=== PATIENT | male | born 1980 | race Asian ===

== ENCOUNTER → 2023-07-03 13:57 | Outpatient (REF) | payer BC, SELFPAY | LOC: WOUND 13:57 | PROVIDERS: ATTENDING PHYSICIAN Surgery; REFERRING PHYSICIAN Physician Assistant Medical | DX: I83.203 Varicose veins of unspecified lower extremity with both ulcer of ankle and inflammation (principal); L97.321 Non-pressure chronic ulcer of left ankle limited to breakdown of skin; I83.013 Varicose veins of right lower extremity with ulcer of ankle; L97.311 Non-pressure chronic ulcer of right ankle limited to breakdown of skin | CPT/HCPCS: 99212 ==

== ENCOUNTER 2024-09-22 10:35 | Emergency (ER) | payer BC, SELFPAY ==
--- NOTE | 2024-09-22 10:46 | ED.GENMED ---
ED Provider Triage
<Iveth Reid PA-C - Last Filed: 09/22/24 10:51>
-
Patient seen by provider in Triage?: Seen in Triage
Attestation: A medical screening examination has been initiated by a qualified medical provider. Based on the assessment performed at this time, it has been determined that an emergent medical condition may exist and the patient has been informed
that further medical evaluation and possible additional diagnostic testing may be needed.
HPI: 44yoM here with R ankle wound x 1 week. C/o chills. Hx of non-healing wounds requiring wound vacs in the past. No hx of diabetes.
GENERAL: Alert , in no apparent distress
EYE: No visual abnormalities.
NECK: Trachea midline
ENT: No visible abnormalities.
LUNGS: No acute respiratory distress
NEUROLOGICAL: Alert and oriented
SKIN: Skin intact. No visible changes.
MUSCULOSKELETAL: Moving extremities normally
PSYCH: Normal and appropriate interaction.
This is a medical evaluation conducted in person to initiate diagnostic evaluation and provide initial therapeutics. Please see further documentation by the treating clinician.
CBC, CMP, and R ankle x-rays ordered.
History of Present Illness
<Iveth Reid PA-C - Last Filed: 09/22/24 10:51>
General
Chief Complaint: Skin Problem
Time Seen by Provider: 09/22/24 11:38
<Michael Montenegro PA-C - Last Filed: 09/22/24 15:42>
History of Present Illness
History of Present Illness:
44-year-old male with history of venous insufficiency of the bilateral lower extremities presents to the emergency department for evaluation of a wound to the right posterior medial ankle. He states that the scab on the wound sloughed off over the
past 24 hours and he reports chills with no fever today. History of complicated wound infections. Having discomfort when ambulating
Past History
<Iveth Reid PA-C - Last Filed: 09/22/24 10:51>
Past History
ED Past Medical History: None
ED Past Surgical History: None
Social History
Tobacco: Smoker (Occasional)
Alcohol: None
Drug: None
Personal:
Living: with family
Employment: Employed
Review of Systems
<Michael Montenegro PA-C - Last Filed: 09/22/24 15:42>
Review of Systems
Allergies reviewed?: Yes
All Other Systems: ROS reviewed and negative except as documented in HPI and ROS
Phy Exam
<Michael Montenegro PA-C - Last Filed: 09/22/24 15:42>
Physical Exam
Physical Exam:
GEN: Well appearing, NAD, WDWN
HEENT: Oral mucosa moist, no scleral icterus
Cardiac: Regular rate
Lung: No respiratory distress, no tachypnea
MSK: No gross deformity or injuries
Skin: Good color, no pallor or jaundice. 1.5 cm circular ulcerated wound to the right posterior medial ankle just anterior to the Achilles tendon. There is no erythema or warmth, the wound is slightly tender to palpation. No crepitus.
Neuro: AO x3, moves all extremities freely
Psych: Calm, cooperative
Course
<Iveth Reid PA-C - Last Filed: 09/22/24 10:51>
Orders/Labs/Results
Orders:
Orders
09/22/24 10:50
Ankle, Right 3 view CR [CR Ankle - Right Min 3 Views *] Urgent
Comment:
Reason For Exam: Wound to medial aspect of ankle
09/22/24 10:55
C-Reactive Protein Urgent
Comment: ADD ON
Complete Blood Count/With Diff Urgent
Comprehensive Metabolic Panel Urgent
09/22/24 12:07
Add On- LAB Urgent
Tests Added?: CRP
Abnormal Lab Results
09/22/24
10:55
RBC 4.60 L 10^6/uL
(4.70-6.10)
Hgb 12.8 L g/dL
(13.0-18.0)
Hct 38.9 L %
(39.0-52.0)
MCHC 32.9 L g/dL
(33.0-37.0)
Creatinine 0.6 L mg/dL
(0.7-1.3)
Glucose 123 H mg/dl
(70-99)
C-Reactive Protein 16.50 H mg/L
(0.0-10.00)
09/22/24 10:55
09/22/24 10:55
Vital Signs
Initial and Last Documented VS:
Initial Vital Signs
Temp Pulse Resp BP Pulse Ox
98.4 F 84 16 134/93 96
09/22/24 10:48 09/22/24 10:48 09/22/24 10:48 09/22/24 10:48 09/22/24 10:48
Last Documented Vital Signs
Temp Pulse Resp BP Pulse Ox
98.4 F 84 19 130/84 99
09/22/24 10:48 09/22/24 14:59 09/22/24 14:59 09/22/24 14:59 09/22/24 14:59
<Michael Montenegro PA-C - Last Filed: 09/22/24 15:42>
Orders/Labs/Results
Orders:
Orders
09/22/24 10:50
Ankle, Right 3 view CR [CR Ankle - Right Min 3 Views *] Urgent
Comment:
Reason For Exam: Wound to medial aspect of ankle
09/22/24 10:55
C-Reactive Protein Urgent
Comment: ADD ON
Complete Blood Count/With Diff Urgent
Comprehensive Metabolic Panel Urgent
09/22/24 12:07
Add On- LAB Urgent
Tests Added?: CRP
Abnormal Lab Results
09/22/24
10:55
RBC 4.60 L 10^6/uL
(4.70-6.10)
Hgb 12.8 L g/dL
(13.0-18.0)
Hct 38.9 L %
(39.0-52.0)
MCHC 32.9 L g/dL
(33.0-37.0)
Creatinine 0.6 L mg/dL
(0.7-1.3)
Glucose 123 H mg/dl
(70-99)
C-Reactive Protein 16.50 H mg/L
(0.0-10.00)
09/22/24 10:55
09/22/24 10:55
Vital Signs
Initial and Last Documented VS:
Initial Vital Signs
Temp Pulse Resp BP Pulse Ox
98.4 F 84 16 134/93 96
09/22/24 10:48 09/22/24 10:48 09/22/24 10:48 09/22/24 10:48 09/22/24 10:48
Last Documented Vital Signs
Temp Pulse Resp BP Pulse Ox
98.4 F 84 19 130/84 99
09/22/24 10:48 09/22/24 14:59 09/22/24 14:59 09/22/24 14:59 09/22/24 14:59
<Ronaldo Cheung, DO - Last Filed: 09/22/24 16:08>
Orders/Labs/Results
Orders:
Orders
09/22/24 10:50
Ankle, Right 3 view CR [CR Ankle - Right Min 3 Views *] Urgent
Comment:
Reason For Exam: Wound to medial aspect of ankle
09/22/24 10:55
C-Reactive Protein Urgent
Comment: ADD ON
Complete Blood Count/With Diff Urgent
Comprehensive Metabolic Panel Urgent
09/22/24 12:07
Add On- LAB Urgent
Tests Added?: CRP
Abnormal Lab Results
09/22/24
10:55
RBC 4.60 L 10^6/uL
(4.70-6.10)
Hgb 12.8 L g/dL
(13.0-18.0)
Hct 38.9 L %
(39.0-52.0)
MCHC 32.9 L g/dL
(33.0-37.0)
Creatinine 0.6 L mg/dL
(0.7-1.3)
Glucose 123 H mg/dl
(70-99)
C-Reactive Protein 16.50 H mg/L
(0.0-10.00)
09/22/24 10:55
09/22/24 10:55
Vital Signs
Initial and Last Documented VS:
Initial Vital Signs
Temp Pulse Resp BP Pulse Ox
98.4 F 84 16 134/93 96
09/22/24 10:48 09/22/24 10:48 09/22/24 10:48 09/22/24 10:48 09/22/24 10:48
Last Documented Vital Signs
Temp Pulse Resp BP Pulse Ox
98.4 F 84 19 130/84 99
09/22/24 10:48 09/22/24 14:59 09/22/24 14:59 09/22/24 14:59 09/22/24 14:59
<Michael Montenegro PA-C - Last Filed: 09/22/24 15:42>
MDM/Problems Addressed
MDM/Problems Addressed:
Do not suspect septic arthritis at this point given that he has minimal to no pain with passive range of motion, although there is a small joint effusion in the right ankle the patient feels as though his ankle is not acutely swollen. Will cover
with prophylactic antibiotics but recommend outpatient wound care follow-up, wound dressed with Xeroform and gauze
<Michael Montenegro PA-C - Last Filed: 09/22/24 15:42>
*Critical Care Note
Total Time (30-74mins, 75-104mins- exclusive of procedures): Not Applicable
ED Attending Note
<Iveth Reid PA-C - Last Filed: 09/22/24 10:51>
-
Portions of this chart may have been created with voice recognition software.� Occasional wrong word or��sound alike� substitutions may have occurred due to the inherent limitations of voice recognition software.
<Ronaldo Cheung DO - Last Filed: 09/22/24 16:08>
ED Attending Note
Patient seen and examined by attending physician: Yes
ED Attending Note:
I have reviewed and agree with history and treatment plan by Sarbjit Montenegro. My exam revealed chronic wound on right ankle. No tenderness at ankle joint. Doubt septic arthritis. Follow-up with wound care.
Discharge Plan
Departure
Patient Disposition: Home (Routine Discharge)
Date of Disposition: 09/22/24
Time of Disposition: 14:44
Patient with high blood pressure during this ER visit?: No
Discharge Problem:
Chronic ulcer of right ankle
Instructions: Wound Care (DC)
Prescriptions:
New
cephalexin 500 mg capsule
500 mg PO Q8H 5 Days Qty: 15 0RF
No Action
cephalexin 500 mg capsule
500 mg PO TID 7 Days Qty: 21 0RF
Referrals:
Hamida Radford PA [Family Provider] -
Wei Dobbs MD [Active] -
Interventions
Interventions:
*Risk Screen - Suicide Last Done: 09/22/24 10:48
*General Assessment Last Done: 09/22/24 10:48
*Neglect/Abuse Screening Last Done: 09/22/24 10:48
ED- Fall Risk Assessment Last Done: 09/22/24 13:08
*Nursing Disposition Last Done: 09/22/24 15:00
Discharge Date and Time
Discharge Date/Time: 09/22/24 15:00
Print Language: YORUBA
[2024-09-22 10:48] VITALS: BP 134/93
[2024-09-22 11:17] LABS: % Basophils 0.7 % (0-2); % Eosinophils 2.5 % (0-6); % Immature Granulocytes 0.4 % (0-0.5); % Lymphocytes 35.8 % (20.5-51.1); % Monocytes 8.2 % (1.7-9.3); % Neutrophils 52.4 % (42.2-75.2); Absolute Eosinophils 0.1 10^3/uL (0-0.7); Absolute Monocytes 0.5 10^3/uL (0.1-0.6); Absolute Neutrophils 2.9 10^3/uL (1.4-6.5); Hematocrit 38.9 % (39.0-52.0); Hemoglobin 12.8 g/dL (13.0-18.0); Mean Corp Hgb Conc. 32.9 g/dL (33.0-37.0); Mean Corpuscular Hgb 27.8 pg (27.0-31.0); Mean Corpuscular Volume 84.6 fL (80.0-94.0); Mean Platelet Volume 9.3 fL (7.4-10.4); Nucleated Red Blood Cells % 0 % (-); Platelet Count 219 10^3/uL (130-400); Red Cell Dist. Width 13.8 % (11.5-14.5); White Blood Cell Count 5.5 10^3/uL (4.8-10.8)
[2024-09-22 11:21] LABS: ALT (SGPT) 33 U/L (0-50); AST (SGOT) 34 U/L (17-59); Albumin 4.7 g/dl (3.5-5.0); Alkaline Phosphatase 74 U/L (38-126); Blood Urea Nitrogen 12 mg/dl (9-20); Calcium 9.5 mg/dl (8.4-10.2); Carbon Dioxide 30 mmol/L (22-30); Chloride 100 mmol/L (98-107); Glucose 123 mg/dl (70-99); Potassium 4.3 mmol/L (3.5-5.1); Sodium 140 mmol/L (135-145); Total Bilirubin 0.4 mg/dl (0.2-1.3); Total Protein 7.8 g/dl (6.3-8.2); eGFR > 60.00
[2024-09-22 14:59] VITALS: BP 130/84
== END 2024-09-22 15:00 | disposition home or self-care (01) ==
LOC: EMR 10:35
PROVIDERS: Physician Assistant; EMERGENCY PHYSICIAN Emergency Medicine; FAMILY PHYSICIAN Physician Assistant Medical
DX: L97.319 Non-pressure chronic ulcer of right ankle with unspecified severity (principal); X58.XXXA Exposure to other specified factors, initial encounter; F17.200 Nicotine dependence, unspecified, uncomplicated; I87.2 Venous insufficiency (chronic) (peripheral)
CPT/HCPCS: 99283; 73610; 80053; 85025; 86140

== ENCOUNTER → 2024-09-25 08:05 | Outpatient (REF) | payer BC, SELFPAY | LOC: WOUND 08:05 | PROVIDERS: ATTENDING PHYSICIAN Surgery; FAMILY PHYSICIAN Physician Assistant Medical | DX: I83.013 Varicose veins of right lower extremity with ulcer of ankle (principal); L97.312 Non-pressure chronic ulcer of right ankle with fat layer exposed | CPT/HCPCS: 11042; 97597; 99213 ==

== ENCOUNTER → 2024-09-29 14:43 | Outpatient (REF) | payer BC, SELFPAY | LOC: WOUND 14:43 | PROVIDERS: ATTENDING PHYSICIAN Surgery; FAMILY PHYSICIAN Physician Assistant Medical | DX: I83.013 Varicose veins of right lower extremity with ulcer of ankle (principal); L97.312 Non-pressure chronic ulcer of right ankle with fat layer exposed | CPT/HCPCS: 11042 ==

== ENCOUNTER → 2024-10-05 13:08 | Outpatient (REF) | payer BC, SELFPAY | LOC: WOUND 13:08 | PROVIDERS: ATTENDING PHYSICIAN Surgery; FAMILY PHYSICIAN Physician Assistant Medical | DX: I83.013 Varicose veins of right lower extremity with ulcer of ankle (principal); L97.312 Non-pressure chronic ulcer of right ankle with fat layer exposed | CPT/HCPCS: 99212 ==

== ENCOUNTER → 2024-10-12 14:26 | Outpatient (REF) | payer BC, SELFPAY | LOC: WOUND 14:26 | PROVIDERS: ATTENDING PHYSICIAN Surgery | DX: I83.013 Varicose veins of right lower extremity with ulcer of ankle (principal); L97.312 Non-pressure chronic ulcer of right ankle with fat layer exposed | CPT/HCPCS: 11042 ==

== ENCOUNTER → 2024-10-19 09:24 | Outpatient (REF) | payer BC, SELFPAY | LOC: WOUND 09:24 | PROVIDERS: ATTENDING PHYSICIAN Surgery; FAMILY PHYSICIAN Physician Assistant Medical | DX: I83.013 Varicose veins of right lower extremity with ulcer of ankle (principal); L97.312 Non-pressure chronic ulcer of right ankle with fat layer exposed | CPT/HCPCS: 11042 ==

== ENCOUNTER → 2024-11-02 09:46 | Outpatient (REF) | payer BC, SELFPAY | LOC: WOUND 09:46 | PROVIDERS: ATTENDING PHYSICIAN Surgery; FAMILY PHYSICIAN Physician Assistant Medical | DX: I83.013 Varicose veins of right lower extremity with ulcer of ankle (principal); L97.312 Non-pressure chronic ulcer of right ankle with fat layer exposed | CPT/HCPCS: 11042 ==

== ENCOUNTER → 2024-11-09 13:48 | Outpatient (REF) | payer BC, SELFPAY | LOC: WOUND 13:48 | PROVIDERS: ATTENDING PHYSICIAN Surgery; FAMILY PHYSICIAN Physician Assistant Medical | DX: I83.013 Varicose veins of right lower extremity with ulcer of ankle (principal); L97.312 Non-pressure chronic ulcer of right ankle with fat layer exposed | CPT/HCPCS: 11042 ==

== ENCOUNTER → 2024-11-12 18:37 | Outpatient (REF) | payer BC, SELFPAY | LOC: RAD 18:37 | PROVIDERS: ATTENDING PHYSICIAN Physician Assistant Medical | DX: L97.312 Non-pressure chronic ulcer of right ankle with fat layer exposed (principal) | CPT/HCPCS: 73630 ==

== ENCOUNTER → 2024-11-16 13:17 | Outpatient (REF) | payer BC, SELFPAY | LOC: WOUND 13:17 | PROVIDERS: ATTENDING PHYSICIAN Surgery; FAMILY PHYSICIAN Physician Assistant Medical | DX: I83.013 Varicose veins of right lower extremity with ulcer of ankle (principal); L97.312 Non-pressure chronic ulcer of right ankle with fat layer exposed | CPT/HCPCS: 11042 ==

== ENCOUNTER → 2024-11-30 10:17 | Outpatient (REF) | payer BC, SELFPAY | LOC: WOUND 10:17 | PROVIDERS: ATTENDING PHYSICIAN Surgery; FAMILY PHYSICIAN Physician Assistant Medical | DX: I83.013 Varicose veins of right lower extremity with ulcer of ankle (principal); L97.312 Non-pressure chronic ulcer of right ankle with fat layer exposed | CPT/HCPCS: 11042 ==

== ENCOUNTER → 2024-12-21 11:14 | Outpatient (REF) | payer BC, SELFPAY | LOC: WOUND 11:14 | PROVIDERS: ATTENDING PHYSICIAN Surgery; FAMILY PHYSICIAN Physician Assistant Medical | DX: I83.013 Varicose veins of right lower extremity with ulcer of ankle (principal); L97.312 Non-pressure chronic ulcer of right ankle with fat layer exposed | CPT/HCPCS: 99213 ==

== ENCOUNTER 2025-01-01 17:51 | Emergency (ER) | payer BC, SELFPAY ==
[2025-01-01 18:07] VITALS: BP 128/84
--- NOTE | 2025-01-01 18:20 | ED.GENMED ---
ED Provider Triage
<Iveth Reid PA-C - Last Filed: 01/01/25 18:21>
-
Patient seen by provider in Triage?: Seen in Triage
Attestation: A medical screening examination has been initiated by a qualified medical provider. Based on the assessment performed at this time, it has been determined that an emergent medical condition may exist and the patient has been informed
that further medical evaluation and possible additional diagnostic testing may be needed.
HPI: 44yoM here with a R ankle wound. Wound since September, sees wound care every Saturday. Has been applying Aquafor and Cerave. Now with increasing pain and difficulty with weight bearing/ROM x 3 days. No f/c. Hx of prediabetes.
GENERAL: Alert , in no apparent distress
EYE: No visual abnormalities.
NECK: Trachea midline
ENT: No visible abnormalities.
LUNGS: No acute respiratory distress
NEUROLOGICAL: Alert and oriented
SKIN: Skin intact. No visible changes.
MUSCULOSKELETAL: Moving extremities normally
PSYCH: Normal and appropriate interaction.
This is a medical evaluation conducted in person to initiate diagnostic evaluation and provide initial therapeutics. Please see further documentation by the treating clinician.
CBC, CMP, ESR/CRP, and R ankle/calcaneus x-rays ordered.
History of Present Illness
<Iveth Reid PA-C - Last Filed: 01/01/25 18:21>
General
Chief Complaint: Skin Problem
Time Seen by Provider: 01/02/25 04:06
<Juany Chester DO - Last Filed: 01/02/25 04:41>
General
Source: patient and previous hospital records (ED visit October 2024 for somewhat similar complaint)
Exam Limitations: none
Nursing documentation reviewed up to this point in time: agreed with
History of Present Illness
History of Present Illness:
This is a 44-year-old gentleman who has history of chronic venous stasis lower extremities with history of chronic wounds to his ankles. Currently being treated by our wound care center for right medial ankle chronic wound that began
September/October.
Along with chronic right ankle wound he notes chronic skin thickening, bilateral medial ankles and has been trialing various different emollient moisturizers. He has been evaluated by truck driver rubbish collector in the past
With trial of a topical steroid cream that caused burning which he promptly discontinued.
He has a referral for a new truck driver rubbish collector provided by his PCP recently.
He continues to work full-time, at [employer], admits to extensive walking and standing.
He complains of increased pain and swelling right medial ankle more so over the past week. He has not had a fever nor chills.
Mild drainage from the wound but this is unchanged.
He has been compliant with ointment, silver alginate dressing and has been applying Tegaderm instead of recommended clean dressing as he admits that he has difficulty putting his compression stockings on over a Tami dressing.
Past History
<Iveth Reid PA-C - Last Filed: 01/01/25 18:21>
Past History
ED Past Medical History: None
ED Past Surgical History: None
Social History
Tobacco: Smoker (Occasional)
Alcohol: None
Drug: None
Personal:
Living: with family
Employment: Employed
<Juany Chester DO - Last Filed: 01/02/25 04:41>
Past History
ED Past Medical History: Other (Venous stasis lower extremities; chronic venous stasis ulcers)
ED Past Surgical History: Other (Vein stripping bilateral lower extremities)
Family History
Family History: Other (Noncontributory)
Phy Exam
<Juany Chester DO - Last Filed: 01/02/25 04:41>
Physical Exam
Physical Exam:
GENERAL: Alert , in no apparent distress
EYE: anicteric
NECK: Supple, nontender
ENT: oral mucosa is moist.
CARDIAC: Regular rate and rhythm. no murmur.
LUNGS: Clear breath sounds bilaterally, no acute respiratory distress, no wheezes/rales/rhonchi
ABDOMEN: Soft, nondistended, without focal tenderness
NEUROLOGICAL: Alert and oriented x3, no focal neuro deficits.
SKIN: Warm and dry, normal color, there is chronic appearing skin thickening/with scale left medial ankle. Right medial ankle has a 1 cm ulcerated wound with scant pearly drainage. There is mildly brawny thickened skin globally of the medial ankle
without palpable heat nor significant palpable tenderness. No lymphangitis. There is no peripheral edema.
MUSCULOSKELETAL: No C/C/E. peripheral pulses are full and equal b/l. Minimal tenderness right medial ankle.
PSYCH: Normal and appropriate interaction.
Course
<Iveth Reid PA-C - Last Filed: 01/01/25 18:21>
Orders/Labs/Results
Orders:
Orders
01/01/25 18:19
CR Ankle - Right Min 3 Views * Urgent
Comment:
Reason For Exam: wound
Calcaneus, Right 2 View [CR Heel/os Calcis - Right 2 Vw] Urgent
Comment:
Reason For Exam: wound
01/01/25 18:25
CRP [C-Reactive Protein] Urgent
Complete Blood Count/With Diff Urgent
Comprehensive Metabolic Panel Urgent
ESR [Erythrocyte Sed Rate] Urgent
01/02/25 04:24
Cephalexin Monohydrate [Keflex] 500 mg PO NOW STA
01/02/25 04:26
Ortho Boot Right- Treatment ONCE
Short or tall?: Short
Abnormal Lab Results
01/01/25
18:25
MCH 26.9 L pg
(27.0-31.0)
MCHC 31.9 L g/dL
(33.0-37.0)
Absolute Neuts (auto) 6.7 H 10^3/uL
(1.4-6.5)
Lymphocytes % 15.5 L %
(20.5-51.1)
ESR 24 H mm/hour
(0-20)
Chloride 96 L mmol/L
(98-107)
Carbon Dioxide 32 H mmol/L
(22-30)
Creatinine 0.6 L mg/dL
(0.7-1.3)
Glucose 128 H mg/dl
(70-99)
C-Reactive Protein 21.90 H mg/L
(0.0-10.00)
Total Protein 9.1 H g/dl
(6.3-8.2)
Albumin 5.2 H g/dl
(3.5-5.0)
01/01/25 18:25
01/01/25 18:25
Vital Signs
Initial and Last Documented VS:
Initial Vital Signs
Temp Pulse Resp BP Pulse Ox
98.6 F 100 16 128/84 96
01/01/25 18:07 01/01/25 18:07 01/01/25 18:07 01/01/25 18:07 01/01/25 18:07
Last Documented Vital Signs
Temp Pulse Resp BP Pulse Ox
98.6 F 100 16 148/85 95
01/01/25 18:07 01/01/25 18:07 01/01/25 18:07 01/02/25 04:13 01/02/25 04:15
<Juany Chester DO - Last Filed: 01/02/25 04:41>
Orders/Labs/Results
Orders:
Orders
01/01/25 18:19
CR Ankle - Right Min 3 Views * Urgent
Comment:
Reason For Exam: wound
Calcaneus, Right 2 View [CR Heel/os Calcis - Right 2 Vw] Urgent
Comment:
Reason For Exam: wound
01/01/25 18:25
CRP [C-Reactive Protein] Urgent
Complete Blood Count/With Diff Urgent
Comprehensive Metabolic Panel Urgent
ESR [Erythrocyte Sed Rate] Urgent
01/02/25 04:24
Cephalexin Monohydrate [Keflex] 500 mg PO NOW STA
01/02/25 04:26
Ortho Boot Right- Treatment ONCE
Short or tall?: Short
Abnormal Lab Results
01/01/25
18:25
MCH 26.9 L pg
(27.0-31.0)
MCHC 31.9 L g/dL
(33.0-37.0)
Absolute Neuts (auto) 6.7 H 10^3/uL
(1.4-6.5)
Lymphocytes % 15.5 L %
(20.5-51.1)
ESR 24 H mm/hour
(0-20)
Chloride 96 L mmol/L
(98-107)
Carbon Dioxide 32 H mmol/L
(22-30)
Creatinine 0.6 L mg/dL
(0.7-1.3)
Glucose 128 H mg/dl
(70-99)
C-Reactive Protein 21.90 H mg/L
(0.0-10.00)
Total Protein 9.1 H g/dl
(6.3-8.2)
Albumin 5.2 H g/dl
(3.5-5.0)
01/01/25 18:25
01/01/25 18:25
Vital Signs
Initial and Last Documented VS:
Initial Vital Signs
Temp Pulse Resp BP Pulse Ox
98.6 F 100 16 128/84 96
01/01/25 18:07 01/01/25 18:07 01/01/25 18:07 01/01/25 18:07 01/01/25 18:07
Last Documented Vital Signs
Temp Pulse Resp BP Pulse Ox
98.6 F 100 16 148/85 95
01/01/25 18:07 01/01/25 18:07 01/01/25 18:07 01/02/25 04:13 01/02/25 04:15
<Juany Chester DO - Last Filed: 01/02/25 04:41>
MDM/Problems Addressed
Differential Diagnosis Includes:
Patient presents with chronic ulcerated wound right medial ankle with complaints of increased pain. There is mild erythema at that overall appears chronic but must consider an early cellulitis.
Labs are reassuring with normal white blood cell count. Minimally elevated CRP at 21, minimally elevated sed rate of 24.
Ankle x-ray shows no evidence of osteomyelitis, no subcutaneous air.
Recommend continuing local wound care as directed by health and safety specialist.
Will place an Ortho boot and will initiate a short course of Keflex for potential cellulitis.
Patient has follow-up appointment with wound care on January 04
Chronic conditions affecting care: Other (Chronic wounds lower extremity, venous stasis)
<Juany Chester DO - Last Filed: 01/02/25 04:41>
*Pulse Oximetry
Patient hypoxic: no
*Critical Care Note
Total Time (30-74mins, 75-104mins- exclusive of procedures): Not Applicable
ED Attending Note
<Iveth Reid PA-C - Last Filed: 01/01/25 18:21>
-
Portions of this chart may have been created with voice recognition software.� Occasional wrong word or��sound alike� substitutions may have occurred due to the inherent limitations of voice recognition software.
Discharge Plan
Departure
Patient Disposition: Home (Routine Discharge)
Date of Disposition: 01/02/25
Time of Disposition: 04:26
Patient with high blood pressure during this ER visit?: No
Condition: Good
Discharge Problem:
venous stasis ulcer right medial ankle
Instructions: [facility] for [facility] Healing-Wounds
Prescriptions:
New
cephalexin 500 mg capsule
1,000 mg PO BID 7 Days Qty: 28 0RF
No Action
cephalexin 500 mg capsule
500 mg PO TID 7 Days Qty: 21 0RF
cephalexin 500 mg capsule
500 mg PO Q8H 5 Days Qty: 15 0RF
Referrals:
UNKNOWN - PT DOES,NOT KNOW [Family Provider] -
Activity Restrictions/Additional Instructions:
Follow-up with wound care center on Saturday as already scheduled.
Interventions
Interventions:
*Risk Screen - Suicide Last Done: 01/01/25 18:07
*General Assessment Last Done: 01/01/25 18:07
*Neglect/Abuse Screening Last Done: 01/01/25 18:07
ED- Fall Risk Assessment Last Done: 01/02/25 04:31
*ED COVID-19 Vaccine History Last Done: 01/02/25 03:36
*Nursing Disposition Last Done: 01/02/25 04:31
ED-Musculoskeletal Assessment Last Done: 01/02/25 03:31
ED-Skin Assessment Last Done: 01/02/25 03:32
Discharge Date and Time
Print Language: [id number]
[2025-01-01 18:32] LABS: % Basophils 0.4 % (0-2); % Eosinophils 3.7 % (0-6); % Immature Granulocytes 0.2 % (0-0.5); % Lymphocytes 15.5 % (20.5-51.1); % Monocytes 5.9 % (1.7-9.3); % Neutrophils 74.3 % (42.2-75.2); Absolute Eosinophils 0.3 10^3/uL (0-0.7); Absolute Lymphocytes 1.4 10^3/uL (1.2-3.4); Absolute Monocytes 0.5 10^3/uL (0.1-0.6); Absolute Neutrophils 6.7 10^3/uL (1.4-6.5); Hematocrit 41.7 % (39.0-52.0); Hemoglobin 13.3 g/dL (13.0-18.0); Mean Corp Hgb Conc. 31.9 g/dL (33.0-37.0); Mean Corpuscular Hgb 26.9 pg (27.0-31.0); Mean Corpuscular Volume 84.4 fL (80.0-94.0); Mean Platelet Volume 8.9 fL (7.4-10.4); Nucleated Red Blood Cells % 0 % (-); Platelet Count 212 10^3/uL (130-400); Red Blood Cell Count 4.94 10^6/uL (4.70-6.10); Red Cell Dist. Width 14.1 % (11.5-14.5); White Blood Cell Count 9.1 10^3/uL (4.8-10.8)
[2025-01-01 18:49] LABS: Erythrocyte Sed Rate 24 mm/hour (0-20)
[2025-01-01 18:53] LABS: ALT (SGPT) 22 U/L (0-50); AST (SGOT) 27 U/L (17-59); Albumin 5.2 g/dl (3.5-5.0); Alkaline Phosphatase 79 U/L (38-126); Blood Urea Nitrogen 17 mg/dl (9-20); Calcium 9.6 mg/dl (8.4-10.2); Carbon Dioxide 32 mmol/L (22-30); Chloride 96 mmol/L (98-107); Glucose 128 mg/dl (70-99); Potassium 4.6 mmol/L (3.5-5.1); Sodium 138 mmol/L (135-145); Total Protein 9.1 g/dl (6.3-8.2); eGFR > 60.00
[2025-01-01 19:11] LABS: Total Bilirubin 0.7 mg/dl (0.2-1.3)
[2025-01-02 03:28] VITALS: BMI 25.0
[2025-01-02 04:13] VITALS: BP 148/85
[2025-01-02] MEDS: KEFLEX 500 MG PO (04:35)
== END 2025-01-02 04:44 | disposition home or self-care (01) ==
LOC: EMR 17:51
PROVIDERS: Physician Assistant; EMERGENCY PHYSICIAN Emergency Medicine
DX: I83.013 Varicose veins of right lower extremity with ulcer of ankle (principal); F17.200 Nicotine dependence, unspecified, uncomplicated
CPT/HCPCS: 99284; 73610; 73650; 80053; 85025; 85652; 86140

== ENCOUNTER → 2025-01-04 10:27 | Outpatient (REF) | payer BC, SELFPAY | LOC: WOUND 10:27 | PROVIDERS: ATTENDING PHYSICIAN Surgery; FAMILY PHYSICIAN Physician Assistant Medical | DX: I83.013 Varicose veins of right lower extremity with ulcer of ankle (principal); L97.312 Non-pressure chronic ulcer of right ankle with fat layer exposed | CPT/HCPCS: 99213 ==

== ENCOUNTER → 2025-02-05 07:36 | Outpatient (REF) | payer BC, SELFPAY | LOC: EMG 07:36 | PROVIDERS: ATTENDING PHYSICIAN Podiatrist Foot & Ankle Surgery; FAMILY PHYSICIAN Physician Assistant Medical | DX: R20.0 Anesthesia of skin (principal); I87.2 Venous insufficiency (chronic) (peripheral) | CPT/HCPCS: 95886; 95911 ==